=== PATIENT | male | born 1970 | race Caucasian/White ===

== ENCOUNTER 2023-01-16 10:23 | Observation (INO) | payer BC ==
[2023-01-16] MEDS ORDERED: Sodium Chloride 0.9% 2.5 ML Syringe FLUSH PRN (10:45)
[2023-01-16] MEDS ORDERED: Sodium Chloride 0.9% 10 ML Syringe FLUSH PRN (10:45)
[2023-01-16] MEDS ORDERED: Aspirin 81 MG Tab.Chew PO ONE (10:53)
[2023-01-16 10:58] LABS: HEMATOCRIT 51.3 % (38.0-50.0); HEMOGLOBIN 17.5 g/dL (13.0-17.0); MEAN CORPUSCULAR HEMOGLOBIN 32.9 pg (27.0-32.0); MEAN CORPUSCULAR HGB CONC 34.1 g/dL (31.0-37.0); MEAN CORPUSCULAR VOLUME 96.4 fL (80.0-98.0); PLATELET COUNT,PLT 194 K/uL (150-400); RED BLOOD CELL COUNT 5.32 M/uL (4.50-5.90); WHITE BLOOD CELL COUNT,WBC 7.97 K/uL (4.0-11.0)
[2023-01-16 11:18] LABS: INR 1.02 (0.86-1.11)
[2023-01-16 11:21] LABS: D-DIMER QUANTITATIVE < 0.19 mg/L FEU (0.00-0.50)
[2023-01-16 11:23] LABS: BAND ABSOLUTE MAN 0.2; BAND PERCENT MAN 2 %; EOSINOPHILS ABSOLUTE MAN 0.2 (0.0-0.7); EOSINOPHILS PERCENT MAN 2 % (0.0-7.0); LYMPHOCYTES ABSOLUTE MAN 1.5 (0.6-2.4); LYMPHOCYTES PERCENT MAN 19 % (16.0-40.0); MONOCYTES ABSOLUTE MAN 0.7 (0.0-0.8); MONOCYTES PERCENT MAN 9 % (0.0-15.0); SEG NEUTROPHILS ABSOLUTE MAN 5.4 (1.4-5.7); SEG NEUTROPHILS PERCENT MAN 68 % (48.0-80.0)
[2023-01-16 11:24] LABS: A/G RATIO 1.3 (0.9-1.6); ALBUMIN 4.4 g/dL (3.4-5.0); BILIRUBIN TOTAL 0.8 mg/dL (0.2-1.0); CALCIUM 9.7 mg/dL (8.5-10.1); CARBON DIOXIDE,CO2 27.3 mmol/L (21.0-32.0); EST CRCL DRUG DOSING (CG) 103.28 mL/min; POTASSIUM,K 4.1 mmol/L (3.5-5.1); PROTEIN TOTAL,TP 7.9 g/dL (6.4-8.2)
[2023-01-16] MEDS ORDERED: Nitroglycerin 0.4 MG Tab.SL SL ONE (11:37)
[2023-01-16] MEDS ORDERED: Pantoprazole 40 MG in Sodium Chloride 0.9% 10 ML IVPUSH ONE (12:12)
[2023-01-16] MEDS ORDERED: Acetaminophen 325 MG Tab PO PRN (12:21)
[2023-01-16] MEDS ORDERED: Naloxone 0.4 MG/ML SDV IVPUSH PRN (12:21)
[2023-01-16] MEDS ORDERED: Nitroglycerin 0.4 MG Tab.SL SL PRN (12:21)
[2023-01-16] MEDS ORDERED: 50% Dextrose in Water 50 ML Syringe IVPUSH PRN (12:21)
[2023-01-16] MEDS ORDERED: Ondansetron 4 MG Tab.DIS PO PRN (12:21)
[2023-01-16] MEDS ORDERED: Morphine 2 MG/ML SYRINGE IVPUSH PRN (12:21)
[2023-01-16] MEDS ORDERED: Enoxaparin 40 MG/0.4 ML Syringe SUBCUT SCH (13:00)
[2023-01-16] MEDS ORDERED: LORazepam 2 MG/ML SDV IVPUSH PRN (14:06)
[2023-01-16] MEDS: Lisinopril 10 MG Tab PO SCH (15:28)
[2023-01-16] MEDS: Carvedilol 3.125 MG Tab PO SCH ×2 (15:29→20:12)
[2023-01-16] MEDS: Empagliflozin 10 MG Tab PO SCH (15:30)
[2023-01-16] MEDS: atorvaSTATin 10 MG Tab PO SCH ×2 (15:31→15:34)
[2023-01-16] MEDS: Insulin Aspart 100 Units/ML 3 ML Pen SUBCUT SCH (18:43)
[2023-01-16] MEDS: Omeprazole 20 MG Cap.CR PO SCH (19:00)
[2023-01-16] MEDS ORDERED: atorvaSTATin 40 MG Tab PO SCH (21:00)
[2023-01-17 05:46] LABS: BASOPHILS PERCENT AUTO 0.6 % (0.0-1.5); EOSINOPHILS ABSOLUTE AUTO 0.1 K/uL (0.0-0.7); EOSINOPHILS PERCENT AUTO 2.1 % (0.0-7.0); HEMATOCRIT 48.4 % (38.0-50.0); HEMOGLOBIN 16.4 g/dL (13.0-17.0); LYMPHOCYTES ABSOLUTE AUTO 1.7 K/uL (0.6-2.4); MEAN CORPUSCULAR HGB CONC 33.9 g/dL (31.0-37.0); MEAN CORPUSCULAR VOLUME 97.4 fL (80.0-98.0); MONOCYTES ABSOLUTE AUTO 0.6 K/uL (0.0-0.8); MONOCYTES PERCENT AUTO 9.4 % (0.0-15.0); NEUTROPHILS ABSOLUTE AUTO 4.2 K/uL (1.4-5.7); NEUTROPHILS PERCENT AUTO 62.9 % (48.0-80.0); PLATELET COUNT,PLT 183 K/uL (150-400); RED BLOOD CELL COUNT 4.97 M/uL (4.50-5.90); WHITE BLOOD CELL COUNT,WBC 6.73 K/uL (4.0-11.0)
[2023-01-17 06:37] LABS: BLOOD UREA NITROGEN,BUN 25 mg/dL (7.0-18.0); CALCIUM 8.7 mg/dL (8.5-10.1); CHLORIDE,CL 101 mmol/L (98-107); CHOLESTEROL HDL 37 mg/dL (40-60); CHOLESTEROL TOTAL 143 mg/dL (50-200); EST CRCL DRUG DOSING (CG) 103.28 mL/min; GLUCOSE RANDOM 175 mg/dL (74-106); POTASSIUM,K 4.3 mmol/L (3.5-5.1); SODIUM,NA 138 mmol/L (136-148); TSH ULTRASENSITIVE 1.31 uIU/mL (0.36-3.74)
[2023-01-17] MEDS: Omeprazole 20 MG Cap.CR PO SCH (06:48)
[2023-01-17 06:58] LABS: ESTIMATED GFR 91 mL/min (>60); TRIGLYCERIDES 454 mg/dL (0-200)
[2023-01-17] MEDS ORDERED: Omeprazole 20 MG Cap.CR PO SCH (07:30)
[2023-01-17] MEDS: Insulin Aspart 100 Units/ML 3 ML Pen SUBCUT SCH (07:51)
[2023-01-17] MEDS ORDERED: Albuterol/Ipratropium 3.0-0.5 MG/3 ML Neb Soln NEB PRN (08:28)
[2023-01-17] MEDS ORDERED: Aspirin 81 MG Tab.Chew PO SCH (09:00)
[2023-01-17] MEDS: Carvedilol 3.125 MG Tab PO SCH (09:16)
[2023-01-17] MEDS: Lisinopril 10 MG Tab PO SCH (09:16)
[2023-01-17] MEDS: Empagliflozin 10 MG Tab PO SCH (09:17)
== END 2023-01-17 11:20 | disposition home or self-care (01) ==
LOC: MW.ED 10:23 → MW.MS 12:14
PROVIDERS: ADMIT Hospitalist; ATTEND Hospitalist
DX: R07.2 Precordial pain (principal); J45.20 Mild intermittent asthma, uncomplicated; F10.90 Alcohol use, unspecified, uncomplicated; E66.9 Obesity, unspecified; J30.2 Other seasonal allergic rhinitis; E11.69 Type 2 diabetes mellitus with other specified complication; K21.9 Gastro-esophageal reflux disease without esophagitis; E78.5 Hyperlipidemia, unspecified; Z79.84 Long term (current) use of oral hypoglycemic drugs; E11.59 Type 2 diabetes mellitus with other circulatory complications; Z79.82 Long term (current) use of aspirin; Z79.899 Other long term (current) drug therapy; Z90.49 Acquired absence of other specified parts of digestive tract; Z68.38 Body mass index [BMI] 38.0-38.9, adult
CPT/HCPCS: 36415; 71045; 80048; 80053; 80061; 82947; 83036; 83690; 84443; 84484; 85025; 85379; 85610; 93306; 94640; A9270; C9113; J1650; J1815; J2060; J2270; J3490; 93010; 96372; 96374; 96375; 99284; 99285-25; G0378